=== PATIENT | male | born 1980 | race Caucasian/White ===

== ENCOUNTER 2019-07-11 15:33 | Emergency (ER) | payer BC, OTHER ==
[~2019-07-11] VITALS: Ht 172.7 cm; Wt 113.6 kg
[2019-07-11] MEDS ORDERED: CYCLOBENZAPRINE HCL 10 MG TABLET PO ONE (16:00)
[2019-07-11] MEDS ORDERED: HYDROCODONE/ACETAMINOPHEN 5-325 MG TABLET PO ONE (16:00)
[2019-07-11 16:57] VITALS: BP 150/98
== END 2019-07-11 17:16 | disposition home or self-care (01) ==
LOC: EMS 15:33
DX: G44.209 Tension-type headache, unspecified, not intractable (principal)
CPT/HCPCS: 70450

== ENCOUNTER 2020-05-23 01:49 | Emergency (ER) | payer OTHER ==
[~2020-05-23] VITALS: Ht 172.7 cm; Wt 122.7 kg
[2020-05-23 03:35] LABS: BASOPHILS % (AUTO) 0.6 % (0.0-2.0); EOSINOPHILS % (AUTO) 3.8 % (1.0-6.0); HEMATOCRIT 42.5 % (41-53); HEMOGLOBIN 14.5 g/dL (13.5-17.5); LYMPHOCYTES # (AUTO) 3.8 K/uL (1.0-4.8); LYMPHOCYTES % (AUTO) 46.1 % (22.0-44.0); MEAN CORPUSCULAR HEMOGLOBIN 29.6 pg (26.0-34.0); MEAN CORPUSCULAR HGB CONC 34.3 G/dL (31.0-37.0); MEAN CORPUSCULAR VOLUME 87 fL (80-100); MONOCYTES # (AUTO) 0.6 K/uL (0.1-1.0); MONOCYTES % (AUTO) 7.9 % (2.0-9.0); NEUTROPHILS # (AUTO) 3.4 K/uL (1.8-7.7); NEUTROPHILS % (AUTO) 41.6 % (40.0-70.0); PLATELET COUNT (AUTO) 285 K/uL (150-450); RED BLOOD CELL COUNT(AUTO) 4.91 MIL/uL (4.50-5.90); RED CELL DISTRIBUTION WIDTH 13.5 % (11.5-14.5)
[2020-05-23 03:37] LABS: APPEARANCE,URINE CLEAR (CLEAR); BILIRUBIN,URINE NEGATIVE (NEGATIVE); GLUCOSE, URINE (UA) NEGATIVE (NEGATIVE); KETONES,URINE NEGATIVE (NEGATIVE); LEUKOCYTE ESTERASE ,URINE NEGATIVE (NEGATIVE); NITRATE,URINE NEGATIVE (NEGATIVE); OCCULT BLOOD,URINE NEGATIVE (NEGATIVE); PH,URINE 6.5 (5.0-8.0); PROTEIN,URINE NEGATIVE (NEGATIVE); UROBILINOGEN,URINE 0.2 mg/dL (<=1.0)
[2020-05-23 03:45] LABS: ANION GAP 7 mmol/L (8-16); CALCIUM, TOTAL 8.8 mg/dL (8.8-10.5); CARBON DIOXIDE 29 mmol/L (22-29); CHLORIDE 105 mmol/L (98-107); CREATININE 1.37 mg/dL (0.60-1.30); GLOMERULAR FILTR. RATE CALC 58 mL/min (>60); GLUCOSE,RANDOM 95 mg/dL (70-110); POTASSIUM 3.5 mmol/L (3.5-5.1); SODIUM SERUM 141 mmol/L (136-145); UREA NITROGEN, BLOOD 9 mg/dL (7-18)
[2020-05-23 03:47] LABS: PROTHROMBIN TIME 10.9 SEC (9.4-11.6)
[2020-05-23 03:52] LABS: B-TYPE NATRIURETIC PEPTIDE < 5 pg/mL (0-100)
[2020-05-23 04:10] LABS: ALANINE AMINOTRANSFERASE 43 U/L (12-78); ALBUMIN 3.8 g/dL (3.4-5.0); ALKALINE PHOSPHATASE 95 U/L (46-116); ASPARTATE AMINOTRANSFERASE 41 U/L (15-37); BILIRUBIN,TOTAL 0.4 mg/dL (0.1-1.0); CREATINE KINASE, TOTAL ONLY 839 U/L (39-308); TOTAL PROTEIN, SERUM 7.6 g/dL (6.4-8.2)
[2020-05-23] MEDS ORDERED: SODIUM CHLORIDE 0.9% 1,000 ML IV ONE (04:30)
[2020-05-23 05:10] VITALS: BP 124/76
== END 2020-05-23 05:42 | disposition home or self-care (01) ==
LOC: EMS 01:50
DX: R07.89 Other chest pain (principal)
CPT/HCPCS: 36415; 71045; 80053; 81003; 82550; 83880; 84484; 85025; 85610; 85730; 93005; 96360; 99285; J7030